=== PATIENT | female | born 1955 ===

== ENCOUNTER 2017-09-25 08:57 | Inpatient (IN) | payer BC ==
[~2017-09-25 08:57] MED LIST: Acetaminophen 1,000 MG in Premix Bag 1 BAG IV SCH; Famotidine 20 MG/2 ML SDV IVPUSH SCH; Lidocaine 2% 5 ML SDV ONE; Midazolam 1 MG/ML 2 ML SDV ONE; Propofol 200 MG/20 ML SDV ONE; Ropivacaine 49.25 ML, Ketorolac 30 MG, EPINEPHrine 0.5 MG, cloNIDine 80 MCG in Sodium C... INJECT SCH; Scopolamine 1.5 MG Transdermal Patch TRDERM SCH; Sodium Chloride 0.9% 20 ML ONE; Tranexamic Acid 4,000 MG in Sodium Chloride 0.9% 100 ML IV SCH; ceFAZolin 1 GM Vial ONE; fentaNYL 100 MCG/2 ML SDV ONE; oxyCODONE ER 10 MG TAB.ER PO SCH
[2017-09-25] MEDS ORDERED: fentaNYL 100 MCG/2 ML SDV IVPUSH PRN (09:05)
[2017-09-25] MEDS: Lactated Ringers 1,000 ML IV SCH ×3 (09:26→23:22)
[2017-09-25] MEDS: Ketorolac 30 MG/ML SDV IVPUSH SCH ×4 (09:26→23:27)
--- NOTE | 2017-09-25 09:35 | PCM.PREANE ---
Preanesthetic Assessment - Anesthesia/Transfusion/Family Hx Anesthesia History: Prior Anesthesia Without Reaction Family History of Anesthesia Reaction: No Transfusion History: No Prior Transfusion(s) - Review of Systems General: No Symptoms Pulmonary: No Symptoms Cardiovascular: No Symptoms Gastrointestinal: No Symptoms Neurological: No Symptoms Other: Reports: None - Physical Assessment NPO Status Date: 09/24/17 Height: 1.68 m Weight: 118.841 kg ASA Class: 3 Mental Status: Alert & Oriented x3 Airway Class: Mallampati = 2 Dentition: Reports: Normal Dentition ROM/Head Extension: Full Lungs: Clear to Auscultation, Normal Respiratory Effort Cardiovascular: Regular Rate, Regular Rhythm - Allergies Allergies/Adverse Reactions: Allergies Allergy/AdvReac Type Severity Reaction Status Date / Time zolpidem tartrate Allergy Arrhythmias Verified 09/20/17 10:04 [From Ambien] - Acknowledgements Anesthesia Type Planned: Spinal Pt an Appropriate Candidate for the Planned Anesthesia: Yes Alternatives and Risks of Anesthesia Discussed w Pt/Guardian: Yes Pt/Guardian Understands and Agrees with Anesthesia Plan: Yes Additional Comments: PMH: MO with BMI of 42, thyroid replacement, GERD- on meds, Allergy to ambien is tachycardia. 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: , Other (See Below) Other OB/BYN History: Ovarian Cysts Musculoskeletal History: Reports: Arthritis, Fracture Other Musculoskeletal History: chronic rt knee and elbow pain Neurological History: Reports: None Psychiatric History: Reports: ADD, Anxiety Endocrine/Metabolic History: Reports: Hypothyroidism Hematologic History: Reports: None Immunologic History: Reports: None Oncologic (Cancer) History: Reports: None Dermatologic History: Reports: None - Infectious Disease History Infectious Disease History: Reports: Chicken Pox, Measles, Mumps - Past Surgical History Other Musculoskeletal Surgeries/Procedures:: Trigger finger surgery to right hand - SUBSTANCE USE Smoking Status *Q: Former Smoker Tobacco Use Within Last Twelve Months: No Recreational Drug Use History: No - HOME MEDS Home Medications: Home Meds Diclofenac Sodium [Voltaren] 75 mg PO BID 02/09/15 [History] Levothyroxine Sodium [Unithroid] 88 mcg PO DAILY 02/09/15 [History] Pantoprazole Sodium 40 mg PO DAILY 02/09/15 [History] Aspirin [Rita Chewable Aspirin] 81 mg CHEW DAILY 09/20/17 [History] Venlafaxine HCl [Venlafaxine HCl ER] 75 mg PO DAILY 09/20/17 [History] traMADol HCl [Tramadol HCl] 50 mg PO ASDIRECTED PRN 09/20/17 [History] - CURRENT (IN HOUSE) MEDS Current Meds: Current Medications Famotidine (Pepcid) 40 mg IVPUSH ONARRIVE [facility] Last Admin: 09/25/17 09:26 Dose: 40 mg Fentanyl (Sublimaze) 50 mcg IVPUSH Q5M PRN PRN Reason: Pain (severe 7-10) Stop: 09/26/17 09:05 Acetaminophen 1,000 mg/ Premix 100 mls @ 400 mls/hr IV ONARRIVE [facility] Last Admin: 09/25/17 09:25 Dose: 400 mls/hr Cefazolin Sodium/Dextrose 2 gm (/ Premix) 50 mls @ 100 mls/hr IV ONCALL [facility] Ropivacaine 49.25 ml/Ketorolac Tromethamine 30 mg/Epinephrine HCl 0.5 mg/ Clonidine HCl 80 mcg/ Sodium Chloride 100 mls @ 50 mls/min INJECT ASDIRECTED [facility] Lactated Ringer's (Ringers, Lactated) 1,000 mls @ 100 mls/hr IV ASDIRECTED [facility] Last Admin: 09/25/17 09:26 Dose: 100 mls/hr Tranexamic Acid 4,000 mg/ (Sodium Chloride) 140 mls @ 600 mls/hr IV ASDIRECTED [facility] Ketorolac Tromethamine (Toradol) 30 mg IVPUSH ONARRIVE [facility] Last Admin: 09/25/17 09:26 Dose: 30 mg Oxycodone HCl (Oxycontin) 10 mg PO ONARRIVE [facility] Last Admin: 09/25/17 09:25 Dose: 10 mg Scopolamine (Transderm-Scop) 1.5 mg TRDERM ONARRIVE [facility] Last Admin: 09/25/17 09:27 Dose: 1.5 mg Discontinued Medications Cefazolin Sodium (Ancef) Confirm Administered Dose 2 gm .ROUTE .STK-MED ONE Stop: 09/25/17 07:12 Fentanyl (Sublimaze) Confirm Administered Dose 100 mcg .ROUTE .STK-MED ONE Stop: 09/25/17 07:09 Sodium Chloride (Normal Saline) Confirm Administered Dose 20 mls @ as directed .ROUTE .STK-MED ONE Stop: 09/25/17 07:12 Lidocaine (Xylocaine-Mpf 2%) Confirm Administered Dose 5 ml .ROUTE .STK-MED ONE Stop: 09/25/17 07:08 Midazolam HCl (Versed 1 Mg/Ml) Confirm Administered Dose 2 mg .ROUTE .STK-MED ONE Stop: 09/25/17 07:09 Propofol (Diprivan 20 Ml) Confirm Administered Dose 400 mg .ROUTE .STK-MED ONE Stop: 09/25/17 07:09 Tranexamic Acid (Cyklokapron) Confirm Administered Dose 4,000 mg .ROUTE .STK- MED ONE Stop: 09/25/17 07:27
--- NOTE | 2017-09-25 10:38 | PCM.OPNOTE ---
- General Post-Op/Procedure Note Date of Surgery/Procedure: 09/25/17 Operative Procedure(s): L TKA Post-Op Diagnosis: L knee DJD Anesthesia Technique: Moderate Sedation, Spinal Primary Surgeon: Princess Prather Professor Of Practice: Nika Garsia Professor Of Practice: Cedric Orta in mLs: 100 Condition: Good Free Text/Narrative:: tt=21 min #[id number]
[2017-09-25] MEDS ORDERED: Glycopyrrolate 0.2 MG/ML SDV ONE (10:56)
[2017-09-25] MEDS ORDERED: Propofol 200 MG/20 ML SDV ONE ×4 (10:59→11:52)
[2017-09-25] MEDS ORDERED: Aluminum Hydroxide/Magnesium Hydroxide/Simethicone Susp 30 ML Cup PO PRN (12:24)
[2017-09-25] MEDS ORDERED: Bisacodyl 10 MG Supp RECTAL PRN (12:24)
[2017-09-25] MEDS ORDERED: Ondansetron 4 MG/2 ML SDV IV PRN (12:24)
[2017-09-25] MEDS ORDERED: diphenhydrAMINE 25 MG Cap PO PRN (12:24)
--- NOTE | 2017-09-25 12:47 | CR ---
Left knee Clinical history: Postoperative Comparison: No similar Findings: There is a total knee prosthesis articulating normally with skin clips present indicating r ecent surgery. Impression: Anatomically correct left total knee
[2017-09-25] MEDS: Morphine PF 30 MG/30 ML PCA Vial IV SCH ×2 (12:52→19:25)
--- NOTE | 2017-09-25 13:21 | PCM.POSTAN ---
POST ANESTHESIA ASSESSMENT - MENTAL STATUS Mental Status: Alert, Oriented - RESPIRATORY Respiratory Status: Respiratory Rate WNL, Airway Patent, O2 Saturation Stable - CARDIOVASCULAR CV Status: Pulse Rate WNL, Blood Pressure Stable - GASTROINTESTINAL GI Status: No Symptoms - POST OP HYDRATION Hydration Status: Adequate & Stable
--- NOTE | 2017-09-25 17:48 | OR ---
SURGEON: Princess Prather MD DATE OF PROCEDURE: 09/25/2017 PREOPERATIVE DIAGNOSIS: Degenerative joint disease, left knee, tricompartmental. POSTOPERATIVE DIAGNOSIS: Degenerative joint disease, left knee, tricompartmental. PROCEDURE: Left total knee arthroplasty using patient-specific instrumentation. WOOD GRINDER OPERATOR: Nika Garsia PA-C and Cedric Orta PA-C. ANESTHESIA: Spinal with sedation. ESTIMATED BLOOD LOSS: 100 mL. TOURNIQUET TIME: 21 minute. COMPLICATIONS: None. DVT PROPHYLAXIS: PAS boot and LESTER hose to the nonoperative leg. IMPLANTS USED: Neil Persona femoral component size 5, standard (LPS), tibial component size D, 11 mm all-polyethylene articular surface, and 29 mm all-polyethylene patella. FINDINGS: Intraoperative findings showed tricompartmental degenerative changes with grade 4 chondromalacia. No significant synovitis was noted. BRIEF HISTORY: Mahsa is a 61-year-old female, who has had complaint of progressive left knee pain. She had failed conservative treatment. Due to her lack of response to conservative treatment, I did recommend surgical intervention. The risks and goals of procedure were discussed with the patient and were documented preoperatively. She agreed to proceed. DESCRIPTION OF PROCEDURE: The patient was properly identified and brought to the operating room. The patient was then transferred from the operating room cart and placed on the operating table in a supine position. Anesthesia was administered by the anesthesia staff. After adequate anesthesia was obtained, a well-padded tourniquet was applied to the surgical lower extremity. Gonsalez catheter was placed. The lower extremity was then prepped in standard fashion using ChloraPrep solution. It was then sterilely draped. A time-out was performed to ensure correct site and procedure. Preoperative antibiotics were given along with one gram of tranexamic acid IV. The surgical site had been marked preoperatively. An incision was made over the anterior aspect of the knee. The subcutaneous tissues were dissected down to the level of the fascia. A medial parapatellar approach to the knee was made. A portion of the infrapatellar fat pad was then excised. The distal femur was then exposed. The femoral patient-specific cutting guide was then placed. Pins were also placed. The distal femoral cutting block was placed and the distal femoral cut was made. Instrumentation was then removed. Both Whitesides' line and the epicondylar axis were then marked with electrocautery. The 4-in-1 cutting block was placed. This was placed in a slightly externally rotated position, which corresponded well with the previously drawn lines. The cutting guide was then pinned into position. An Cole wing guide was used to check the depth of resection of our anterior condylar cut and it was felt that no notching would occur. The anterior condylar cut was then made followed by the posterior condylar cut. Both the posterior chamfer and anterior chamfer cuts were then made. The cutting block was then removed along with the excess bony remnants. We then turned our attention to the tibia. The anterior cruciate ligament and posterior cruciate ligament were released and a posterior cruciate ligament retractor was placed to allow the tibia to be pulled anteriorly. The tibial patient-specific guide was then placed on the proximal tibia. This fit anatomically. The pins were then placed. The proximal tibia cutting guide was then placed and screwed into position. The proximal tibial resection was then made with care being taken to protect the patellar tendon. The bony resection was then removed. The remainder of the medial and lateral meniscus were then excised. Care was taken to protect the popliteus tendon. The tibia was then sized to the appropriate size. The distal femur was then elevated. The posterior capsule was stripped off of the distal femur both medially and laterally. The posterior capsule along with the medial and lateral gutters were then injected with a standard mixture consisting of clonidine, epinephrine, Toradol, and Ropivacaine, unless any allergies were found preoperatively. The femoral component was then placed onto the distal femur in a slightly lateral position. This fit the femur well. A box cut was then made without difficulty. This was then removed. The tibial trial along with the polyethylene liner was then placed. The knee came easily into full extension and was stable to varus and valgus stressing both in full extension and flexion. Any additional releases were performed at this time. We then returned our attention to the patella. The patella was everted and towel clamps were used to hold the patella in position. It was resected to a 15 millimeter thickness. It was then sized to the appropriate size. It was prepared in the usual fashion after placing the predetermined size clamps. This was placed in a slightly superior and medial position. The clamp was then removed. The patellar trial button was placed. The knee was taken through a range of motion using the no-touch technique. The patella tracked centrally. A drop sandrine was then placed to check alignment. All instruments were then removed from the knee. The tibial sizer was then placed on the tibia. The tibia was prepared in the usual fashion using the reamer and broach. An Esmarch was used to exsanguinate the right lower extremity and the tourniquet was inflated. This was then removed. All bony surfaces were copiously irrigated with Pulsavac solution. They were then suctioned dry. Cement was prepared on the back table in the usual manner. Once it was prepared, the bone ends were again suctioned dry. The tibia was cemented into place first. This was malleted into position. Excess cement was then cleared. The femur was then placed in a similar manner. We placed the polyethylene trial into place and the knee was brought into full extension. An axial load was placed while keeping the knee in full extension. The patella button was also cemented into position and the clamp was used to hold this in place as the cement was allowed to cure. The wound was again copiously irrigated with saline solution using a Pulsavac pediatric cns. Following this 1 g of tranexamic acid was applied to the wound topically. After we had adequate curing of the cement, the knee was again taken through a range of motion. The size of the polyethylene was then determined. The polyethylene trial was then removed. The tibial tray was suctioned to make sure there was no remaining soft tissue or cement. Excess cement was cleared from around the edges of the prosthesis as well. The tourniquet was then deflated. We were able to observe for any excess bleeding and none was noted. Electrocautery was used to maintain hemostasis. An additional gram of tranexamic acid was given IV. The retractors were again placed and the predetermined polyethylene was then placed. This was locked into position without difficulty. The knee was again taken through a range of motion with no change from the prior exam. The fascial layer was closed with Number One Vicryl. The subcutaneous tissues were closed with 2-0 Vicryl. The skin was closed with rohit. Xeroform gauze was placed over the wound and a bulky dressing was applied. The patient was then awakened from anesthesia and transferred back to the operating room cart. They were brought to the recovery room in stable condition. All needle and sponge counts were correct. JAI / CHRISTOPHER /[id number] MTDD
[2017-09-25] MEDS: ceFAZolin 2 GM in Premix Bag 1 BAG IV SCH ×4 (18:13)
[2017-09-25] MEDS: oxyCODONE ER 10 MG TAB.ER PO SCH (20:17)
[2017-09-25] MEDS: Docusate Sodium 100 MG Cap PO SCH (20:17)
[2017-09-25] MEDS: Acetaminophen/HYDROcodone 325-10 MG Tab PO PRN (22:13)
[2017-09-26] MEDS: Morphine PF 30 MG/30 ML PCA Vial IV SCH (00:25)
[2017-09-26] MEDS: Acetaminophen/HYDROcodone 325-10 MG Tab PO PRN ×5 (03:12→19:48)
[2017-09-26] MEDS: ceFAZolin 2 GM in Premix Bag 1 BAG IV SCH ×2 (03:14→03:15)
[2017-09-26] MEDS ORDERED: Sodium Chloride 0.9% 10 ML Syringe FLUSH PRN (08:24)
[2017-09-26] MEDS ORDERED: Sodium Chloride 0.9% 2.5 ML Syringe FLUSH PRN (08:24)
[2017-09-26] MEDS ORDERED: Morphine 4 MG/ML Syringe IVPUSH PRN (08:24)
[2017-09-26] MEDS: Aspirin 325 MG Tab PO SCH ×2 (08:53→21:33)
[2017-09-26] MEDS: Venlafaxine 75 MG Cap.ER PO SCH (08:53)
[2017-09-26] MEDS: Pantoprazole 40 MG Tab.CR PO SCH (08:53)
[2017-09-26] MEDS: Docusate Sodium 100 MG Cap PO SCH ×2 (08:54→21:33)
[2017-09-26] MEDS: oxyCODONE ER 10 MG TAB.ER PO SCH ×2 (08:54→21:33)
[2017-09-26] MEDS: Levothyroxine 88 MCG Tab PO SCH (08:56)
[2017-09-26] MEDS: Celecoxib 100 MG Cap PO SCH ×2 (08:56→21:32)
--- NOTE | 2017-09-26 09:47 | PCM48HPAN ---
Post Anesthesia Note - EVALUATION WITHIN 48HRS OF ANESTHETIC Vital Signs in Normal Range: Yes Patient Participated in Evaluation: Yes Respiratory Function Stable: Yes Airway Patent: Yes Cardiovascular Function Stable: Yes Hydration Status Stable: Yes Pain Control Satisfactory: Yes Nausea and Vomiting Control Satisfactory: Yes Mental Status Recovered: Yes
--- NOTE | 2017-09-26 11:07 | PCM.SURGPN ---
Addendum entered and electronically signed by Nika Garsia PA 09/26/17 11: 13: note should include exam of L knee reveals dressing in place, at/ehl/gastroc 5/5, dp 2+, sensation intact distally. Original Note: <Nika Garsia - Last Filed: 09/26/17 11:02> - General Info Date of Service: 09/26/17 Date of Surgery/Procedure: 09/25/17 POD#: 1 Functional Status: Reports: Tolerating Diet, Ambulating - Review of Systems Systems Review Comment:: pt resting comfortably in bed had difficult time controlling pain last night, but under better control this morning has been to bedside, had difficulty ambulating yesterday no specific concerns today is hoping for d/ch to home today - Patient Data Vitals - Most Recent: Last Vital Signs Temp 98.1 F 09/26/17 08:00 Pulse 75 09/26/17 08:00 Resp 14 09/26/17 08:00 BP 123/60 09/26/17 08:00 Pulse Ox 96 09/26/17 08:00 Weight - Most Recent: 118.841 kg I&O - Last 24 Hours: Intake & Output 09/25/17 09/26/17 09/26/17 22:59 06:59 14:59 Intake Total 50 2438 Output Total 650 Balance 50 1788 Lab Results Last 24 Hrs: Laboratory Results - last 24 hr 09/26/17 Range/Units 04:51 Hgb 10.8 L (12.0-16.0) g/dL Hct 34.3 L (36.0-46.0) % Med Orders - Current: Current Medications Hydrocodone Bitart/Acetaminophen ([place] 325-10 Mg) 1 - 2 tab PO Q4H PRN PRN Reason: Pain Last Admin: 09/26/17 07:34 Dose: 2 tab Al Hydroxide/Mg Hydroxide (Mag-Al Plus) 30 ml PO Q4H PRN PRN Reason: indigestion Aspirin (Aspirin) 325 mg PO BID [facility] Last Admin: 09/26/17 08:53 Dose: 325 mg Bisacodyl (Dulcolax) 10 mg RECTAL DAILY PRN PRN Reason: Constipation Celecoxib (Celebrex) 200 mg PO BID [facility] Last Admin: 09/26/17 08:56 Dose: 200 mg Diphenhydramine HCl (Benadryl) 25 - 50 mg PO Q6H PRN PRN Reason: Itching Docusate Sodium (Colace) 100 mg PO BID [facility] Last Admin: 09/26/17 08:54 Dose: 100 mg Famotidine (Pepcid) 40 mg IVPUSH ONARRIVE [facility] Last Admin: 09/25/17 09:26 Dose: 40 mg Acetaminophen 1,000 mg/ Premix 100 mls @ 400 mls/hr IV ONARRIVE [facility] Last Admin: 09/25/17 09:25 Dose: 400 mls/hr Cefazolin Sodium/Dextrose 2 gm (/ Premix) 50 mls @ 100 mls/hr IV ONCALL [facility] Ropivacaine 49.25 ml/Ketorolac Tromethamine 30 mg/Epinephrine HCl 0.5 mg/ Clonidine HCl 80 mcg/ Sodium Chloride 100 mls @ 50 mls/min INJECT ASDIRECTED [facility] Tranexamic Acid 4,000 mg/ (Sodium Chloride) 140 mls @ 600 mls/hr IV ASDIRECTED [facility] Ketorolac Tromethamine (Toradol) 30 mg IVPUSH ONARRIVE [facility] Last Admin: 09/25/17 09:26 Dose: 30 mg Levothyroxine Sodium (Synthroid) 88 mcg PO ACBREAKFAST [facility] Last Admin: 09/26/17 08:56 Dose: 88 mcg Morphine Sulfate (Morphine) 1 - 3 mg IVPUSH Q3H PRN PRN Reason: Pain Ondansetron HCl (Zofran) 4 mg IV Q6HR PRN PRN Reason: NAUSEA/VOMITING Oxycodone HCl (Oxycontin) 10 mg PO ONARRIVE [facility] Last Admin: 09/25/17 09:25 Dose: 10 mg Oxycodone HCl (Oxycontin) 10 mg PO Q12HR [facility] Last Admin: 09/26/17 08:54 Dose: 10 mg Pantoprazole Sodium (Protonix) 40 mg PO DAILY [facility] Last Admin: 09/26/17 08:53 Dose: 40 mg Scopolamine (Transderm-Scop) 1.5 mg TRDERM ONARRIVE [facility] Last Admin: 09/25/17 09:27 Dose: 1.5 mg Sodium Chloride (Saline Flush) 10 ml FLUSH ASDIRECTED PRN PRN Reason: Keep Vein Open Sodium Chloride (Saline Flush) 2.5 ml FLUSH ASDIRECTED PRN PRN Reason: Keep Vein Open Venlafaxine HCl (Effexor Xr) 75 mg PO DAILY [facility] Last Admin: 09/26/17 08:53 Dose: 75 mg Discontinued Medications Cefazolin Sodium (Ancef) Confirm Administered Dose 2 gm .ROUTE .STK-MED ONE Stop: 09/25/17 07:12 Fentanyl (Sublimaze) Confirm Administered Dose 100 mcg .ROUTE .STK-MED ONE Stop: 09/25/17 07:09 Fentanyl (Sublimaze) 50 mcg IVPUSH Q5M PRN PRN Reason: Pain (severe 7-10) Stop: 09/26/17 09:05 Glycopyrrolate (Robinul) Confirm Administered Dose 0.2 mg .ROUTE .[facility] Stop: 09/25/17 10:57 Lactated Ringer's (Ringers, Lactated) 1,000 mls @ 100 mls/hr IV ASDIRECTED [facility] Last Admin: 09/25/17 23:22 Dose: 100 mls/hr Sodium Chloride (Normal Saline) Confirm Administered Dose 20 mls @ as directed .ROUTE .[facility] ONE Stop: 09/25/17 07:12 Cefazolin Sodium/Dextrose 2 gm (/ Premix) 50 mls @ 100 mls/hr IV Q8H [facility] Stop: 09/26/17 03:29 Last Admin: 09/26/17 03:15 Dose: 100 mls/hr Ketorolac Tromethamine (Toradol) 30 mg IVPUSH Q6H [facility] Stop: 09/26/17 04:00 Last Admin: 09/25/17 23:27 Dose: 30 mg Lidocaine (Xylocaine-Mpf 2%) Confirm Administered Dose 5 ml .ROUTE .STK-MED ONE Stop: 09/25/17 07:08 Midazolam HCl (Versed 1 Mg/Ml) Confirm Administered Dose 2 mg .ROUTE .STK-MED ONE Stop: 09/25/17 07:09 Morphine Sulfate (Morphine Manager Fleet 30 Mg In 30 Ml) 30 mg IV ASDIRECTED [facility] PRN Reason: Protocol Last Admin: 09/26/17 00:25 Dose: 30 mg Propofol (Diprivan 20 Ml) Confirm Administered Dose 400 mg .ROUTE .STK-MED ONE Stop: 09/25/17 07:09 Propofol (Diprivan 20 Ml) Confirm Administered Dose 200 mg .ROUTE .STK-MED ONE Stop: 09/25/17 11:00 Propofol (Diprivan 20 Ml) Confirm Administered Dose 200 mg .ROUTE .STK-MED ONE Stop: 09/25/17 11:02 Propofol (Diprivan 20 Ml) Confirm Administered Dose 200 mg .ROUTE .STK-MED ONE Stop: 09/25/17 11:10 Propofol (Diprivan 20 Ml) Confirm Administered Dose 200 mg .ROUTE .STK-MED ONE Stop: 09/25/17 11:53 Tranexamic Acid (Cyklokapron) Confirm Administered Dose 4,000 mg .ROUTE .STK- MED ONE Stop: 09/25/17 07:27 - Exam Wound/Incisions: Dressing Dry and Intact. No: Drainage, Erythema General: Alert, Oriented Physical Findings Comment:: vss, afeb hgb 10.8 UO 785mL - Problem List Review Problem List Initiated/Reviewed/Updated: Yes - My Orders Last 24 Hours: Active Orders 24 hr Category Date Time Status Activity as Tolerated [RC] .Routine Care 09/25/17 12:24 Active Dressing Change [Wound Care] [RC] ASDIRECTED Care 09/25/17 12:24 Active Intake and Output [RC] Q12H Care 09/25/17 12:24 Active Neurovascular Check [RC] Q2HR Care 09/25/17 12:24 Active Notify Provider Vital Signs [RC] ASDIRECTED Care 09/25/17 12:24 Active RT Incentive Spirometry [RC] ASDIRECTED Care 09/25/17 12:24 Active Urinary Catheter Removal [RC] Per Unit Routine Care 09/26/17 08:24 Active Vital Signs [RC] Q4H Care 09/25/17 12:24 Active PT Evaluation and Treatment [CONS] Routine Cons 09/25/17 12:24 Active HEMOGLOBIN/HEMATOCRIT,HH [HEME] DAILY Lab 09/27/17 06:00 Ordered HEMOGLOBIN/HEMATOCRIT,HH [HEME] DAILY Lab 09/28/17 06:00 Ordered Acetaminophen/HYDROcodone [[place] 325-10 MG] Med 09/25/17 12:24 Active 1 - 2 tab PO Q4H PRN Alum Hydrox/Mag Hydrox/Simeth [Mag-Al Plus] Med 09/25/17 12:24 Active 30 ml PO Q4H PRN Aspirin Med 09/26/17 09:00 Active 325 mg PO BID Bisacodyl [Dulcolax] Med 09/25/17 12:24 Active 10 mg RECTAL DAILY PRN Celecoxib [CeleBREX] Med 09/26/17 09:00 Active 200 mg PO BID Docusate Sodium [Colace] Med 09/25/17 21:00 Active 100 mg PO BID Levothyroxine [Synthroid] Med 09/26/17 09:00 Active 88 mcg PO ACBREAKFAST Morphine Med 09/26/17 08:24 Active 1 - 3 mg IVPUSH Q3H PRN Ondansetron [Zofran] Med 09/25/17 12:24 Active 4 mg IV Q6HR PRN Pantoprazole [ProTONIX] Med 09/26/17 09:00 Active 40 mg PO DAILY Sodium Chloride 0.9% [Saline Flush] Med 09/26/17 08:24 Active 10 ml FLUSH ASDIRECTED PRN Sodium Chloride 0.9% [Saline Flush] Med 09/26/17 08:24 Active 2.5 ml FLUSH ASDIRECTED PRN Venlafaxine [Effexor XR] Med 09/26/17 09:00 Active 75 mg PO DAILY diphenhydrAMINE [Benadryl] Med 09/25/17 12:24 Active 25 - 50 mg PO Q6H PRN oxyCODONE ER [OxyCONTIN] Med 09/25/17 21:00 Active 10 mg PO Q12HR Convert IV to Saline Lock [OM.PC] Routine Oth 09/26/17 08:24 Ordered Ice Therapy [OM.PC] Routine Oth 09/25/17 12:24 Ordered Medication Orders Hydrocodone Bitart/Acetaminophen ([place] 325-10 Mg) 1 - 2 tab PO Q4H PRN PRN Reason: Pain Last Admin: 09/26/17 07:34 Dose: 2 tab Admin: 09/26/17 03:12 Dose: 1 tab Admin: 09/25/17 22:13 Dose: 1 tab Al Hydroxide/Mg Hydroxide (Mag-Al Plus) 30 ml PO Q4H PRN PRN Reason: indigestion Aspirin (Aspirin) 325 mg PO BID [facility] Last Admin: 09/26/17 08:53 Dose: 325 mg Bisacodyl (Dulcolax) 10 mg RECTAL DAILY PRN PRN Reason: Constipation Celecoxib (Celebrex) 200 mg PO BID [facility] Last Admin: 09/26/17 08:56 Dose: 200 mg Diphenhydramine HCl (Benadryl) 25 - 50 mg PO Q6H PRN PRN Reason: Itching Docusate Sodium (Colace) 100 mg PO BID [facility] Last Admin: 09/26/17 08:54 Dose: 100 mg Admin: 09/25/17 20:17 Dose: 100 mg Famotidine (Pepcid) 40 mg IVPUSH ONARRIVE [facility] Last Admin: 09/25/17 09:26 Dose: 40 mg Acetaminophen 1,000 mg/ Premix 100 mls @ 400 mls/hr IV ONARRIVE [facility] Last Admin: 09/25/17 09:25 Dose: 400 mls/hr Cefazolin Sodium/Dextrose 2 gm (/ Premix) 50 mls @ 100 mls/hr IV ONCALL [facility] Ropivacaine 49.25 ml/Ketorolac Tromethamine 30 mg/Epinephrine HCl 0.5 mg/ Clonidine HCl 80 mcg/ Sodium Chloride 100 mls @ 50 mls/min INJECT ASDIRECTED [facility] Tranexamic Acid 4,000 mg/ (Sodium Chloride) 140 mls @ 600 mls/hr IV ASDIRECTED [facility] Ketorolac Tromethamine (Toradol) 30 mg IVPUSH ONARRIVE [facility] Last Admin: 09/25/17 09:26 Dose: 30 mg Levothyroxine Sodium (Synthroid) 88 mcg PO ACBREAKFAST [facility] Last Admin: 09/26/17 08:56 Dose: 88 mcg Morphine Sulfate (Morphine) 1 - 3 mg IVPUSH Q3H PRN PRN Reason: Pain Ondansetron HCl (Zofran) 4 mg IV Q6HR PRN PRN Reason: NAUSEA/VOMITING Oxycodone HCl (Oxycontin) 10 mg PO ONARRIVE [facility] Last Admin: 09/25/17 09:25 Dose: 10 mg Oxycodone HCl (Oxycontin) 10 mg PO Q12HR [facility] Last Admin: 09/26/17 08:54 Dose: 10 mg Admin: 09/25/17 20:17 Dose: 10 mg Pantoprazole Sodium (Protonix) 40 mg PO DAILY [facility] Last Admin: 09/26/17 08:53 Dose: 40 mg Scopolamine (Transderm-Scop) 1.5 mg TRDERM ONARRIVE [facility] Last Admin: 09/25/17 09:27 Dose: 1.5 mg Sodium Chloride (Saline Flush) 10 ml FLUSH ASDIRECTED PRN PRN Reason: Keep Vein Open Sodium Chloride (Saline Flush) 2.5 ml FLUSH ASDIRECTED PRN PRN Reason: Keep Vein Open Venlafaxine HCl (Effexor Xr) 75 mg PO DAILY [facility] Last Admin: 09/26/17 08:53 Dose: 75 mg - Assessment Assessment (Free Text/Narrative):: POD#1 L TKA acute posthemorrhagic anemia - Plan Plan (Free Text/Narrative):: DC [employer], IV fluids, arias morphine 1-3mg IV q3h prn pain PT today ASA 325mg PO BID for DVT prophylaxis if pt does well with PT, and pain is well controlled, will allow d/ch to home this afternoon will need dressing change to aquacel prior to discharge <Princess Prather - Last Filed: 09/27/17 08:39> - Patient Data Vitals - Most Recent: Last Vital Signs Temp 98.2 F 09/27/17 04:00 Pulse 74 09/27/17 04:00 Resp 17 09/27/17 04:00 BP 136/88 09/27/17 04:00 Pulse Ox 98 09/27/17 04:00 I&O - Last 24 Hours: Intake & Output 09/26/17 09/27/17 09/27/17 22:59 06:59 14:59 Intake Total 920 600 Output Total 650 Balance 920 -50 Lab Results Last 24 Hrs: Laboratory Results - last 24 hr 09/27/17 Range/Units 05:28 Hgb 10.8 L (12.0-16.0) g/dL Hct 33.8 L (36.0-46.0) % Med Orders - Current: Current Medications Hydrocodone Bitart/Acetaminophen ([place] 325-10 Mg) 1 - 2 tab PO Q4H PRN PRN Reason: Pain Last Admin: 09/27/17 06:51 Dose: 2 tab Al Hydroxide/Mg Hydroxide (Mag-Al Plus) 30 ml PO Q4H PRN PRN Reason: indigestion Aspirin (Aspirin) 325 mg PO BID [facility] Last Admin: 09/26/17 21:33 Dose: 325 mg Bisacodyl (Dulcolax) 10 mg RECTAL DAILY PRN PRN Reason: Constipation Celecoxib (Celebrex) 200 mg PO BID [facility] Last Admin: 09/26/17 21:32 Dose: 200 mg Diphenhydramine HCl (Benadryl) 25 - 50 mg PO Q6H PRN PRN Reason: Itching Docusate Sodium (Colace) 100 mg PO BID [facility] Last Admin: 09/26/17 21:33 Dose: 100 mg Famotidine (Pepcid) 40 mg IVPUSH ONARRIVE [facility] Last Admin: 09/25/17 09:26 Dose: 40 mg Acetaminophen 1,000 mg/ Premix 100 mls @ 400 mls/hr IV ONARRIVE [facility] Last Admin: 09/25/17 09:25 Dose: 400 mls/hr Cefazolin Sodium/Dextrose 2 gm (/ Premix) 50 mls @ 100 mls/hr IV ONCALL [facility] Ropivacaine 49.25 ml/Ketorolac Tromethamine 30 mg/Epinephrine HCl 0.5 mg/ Clonidine HCl 80 mcg/ Sodium Chloride 100 mls @ 50 mls/min INJECT ASDIRECTED [facility] Tranexamic Acid 4,000 mg/ (Sodium Chloride) 140 mls @ 600 mls/hr IV ASDIRECTED [facility] Ketorolac Tromethamine (Toradol) 30 mg IVPUSH ONARRIVE [facility] Last Admin: 09/25/17 09:26 Dose: 30 mg Levothyroxine Sodium (Synthroid) 88 mcg PO ACBREAKFAST [facility] Last Admin: 09/27/17 06:55 Dose: 88 mcg Morphine Sulfate (Morphine) 1 - 3 mg IVPUSH Q3H PRN PRN Reason: Pain Last Admin: 09/26/17 13:16 Dose: 1 mg Ondansetron HCl (Zofran) 4 mg IV Q6HR PRN PRN Reason: NAUSEA/VOMITING Oxycodone HCl (Oxycontin) 10 mg PO ONARRIVE [facility] Last Admin: 09/25/17 09:25 Dose: 10 mg Oxycodone HCl (Oxycontin) 10 mg PO Q12HR [facility] Last Admin: 09/26/17 21:33 Dose: 10 mg Pantoprazole Sodium (Protonix) 40 mg PO DAILY [facility] Last Admin: 09/26/17 08:53 Dose: 40 mg Scopolamine (Transderm-Scop) 1.5 mg TRDERM ONARRIVE [facility] Last Admin: 09/25/17 09:27 Dose: 1.5 mg Sodium Chloride (Saline Flush) 10 ml FLUSH ASDIRECTED PRN PRN Reason: Keep Vein Open Sodium Chloride (Saline Flush) 2.5 ml FLUSH ASDIRECTED PRN PRN Reason: Keep Vein Open Tramadol HCl (Ultram) 50 - 100 mg PO Q6H PRN PRN Reason: Pain Venlafaxine HCl (Effexor Xr) 75 mg PO DAILY [facility] Last Admin: 09/26/17 08:53 Dose: 75 mg Discontinued Medications Cefazolin Sodium (Ancef) Confirm Administered Dose 2 gm .ROUTE .STK-MED ONE Stop: 09/25/17 07:12 Fentanyl (Sublimaze) Confirm Administered Dose 100 mcg .ROUTE .STK-MED ONE Stop: 09/25/17 07:09 Fentanyl (Sublimaze) 50 mcg IVPUSH Q5M PRN PRN Reason: Pain (severe 7-10) Stop: 09/26/17 09:05 Glycopyrrolate (Robinul) Confirm Administered Dose 0.2 mg .ROUTE .STK-MED ONE Stop: 09/25/17 10:57 Lactated Ringer's (Ringers, Lactated) 1,000 mls @ 100 mls/hr IV ASDIRECTED [facility] Last Admin: 09/25/17 23:22 Dose: 100 mls/hr Sodium Chloride (Normal Saline) Confirm Administered Dose 20 mls @ as directed .ROUTE .STK-MED ONE Stop: 09/25/17 07:12 Cefazolin Sodium/Dextrose 2 gm (/ Premix) 50 mls @ 100 mls/hr IV Q8H [facility] Stop: 09/26/17 03:29 Last Admin: 09/26/17 03:15 Dose: 100 mls/hr Ketorolac Tromethamine (Toradol) 30 mg IVPUSH Q6H [facility] Stop: 09/26/17 04:00 Last Admin: 09/25/17 23:27 Dose: 30 mg Lidocaine (Xylocaine-Mpf 2%) Confirm Administered Dose 5 ml .ROUTE .STK-MED ONE Stop: 09/25/17 07:08 Midazolam HCl (Versed 1 Mg/Ml) Confirm Administered Dose 2 mg .ROUTE .STK-MED ONE Stop: 09/25/17 07:09 Morphine Sulfate (Morphine Manager Fleet 30 Mg In 30 Ml) 30 mg IV ASDIRECTED [facility] PRN Reason: Protocol Last Admin: 09/26/17 00:25 Dose: 30 mg Propofol (Diprivan 20 Ml) Confirm Administered Dose 400 mg .ROUTE .STK-MED ONE Stop: 09/25/17 07:09 Propofol (Diprivan 20 Ml) Confirm Administered Dose 200 mg .ROUTE .STK-MED ONE Stop: 09/25/17 11:00 Propofol (Diprivan 20 Ml) Confirm Administered Dose 200 mg .ROUTE .STK-MED ONE Stop: 09/25/17 11:02 Propofol (Diprivan 20 Ml) Confirm Administered Dose 200 mg .ROUTE .STK-MED ONE Stop: 09/25/17 11:10 Propofol (Diprivan 20 Ml) Confirm Administered Dose 200 mg .ROUTE .STK-MED ONE Stop: 09/25/17 11:53 Tranexamic Acid (Cyklokapron) Confirm Administered Dose 4,000 mg .ROUTE .STK- MED ONE Stop: 09/25/17 07:27 - My Orders Last 24 Hours: Active Orders 24 hr Category Date Time Status HEMOGLOBIN/HEMATOCRIT,HH [HEME] DAILY Lab 09/28/17 06:00 Ordered Aspirin Med 09/26/17 09:00 Active 325 mg PO BID Celecoxib [CeleBREX] Med 09/26/17 09:00 Active 200 mg PO BID Levothyroxine [Synthroid] Med 09/26/17 09:00 Active 88 mcg PO ACBREAKFAST Morphine Med 09/26/17 08:24 Active 1 - 3 mg IVPUSH Q3H PRN Pantoprazole [ProTONIX] Med 09/26/17 09:00 Active 40 mg PO DAILY Sodium Chloride 0.9% [Saline Flush] Med 09/26/17 08:24 Active 10 ml FLUSH ASDIRECTED PRN Sodium Chloride 0.9% [Saline Flush] Med 09/26/17 08:24 Active 2.5 ml FLUSH ASDIRECTED PRN Venlafaxine [Effexor XR] Med 09/26/17 09:00 Active 75 mg PO DAILY traMADol [Ultram] Med 09/26/17 16:44 Active 50 - 100 mg PO Q6H PRN Convert IV to Saline Lock [OM.PC] Routine Oth 09/26/17 08:24 Ordered Medication Orders Hydrocodone Bitart/Acetaminophen ([place] 325-10 Mg) 1 - 2 tab PO Q4H PRN PRN Reason: Pain Last Admin: 09/27/17 06:51 Dose: 2 tab Admin: 09/27/17 02:07 Dose: 2 tab Admin: 09/26/17 19:48 Dose: 2 tab Admin: 09/26/17 15:35 Dose: 2 tab Admin: 09/26/17 11:35 Dose: 2 tab Admin: 09/26/17 07:34 Dose: 2 tab Admin: 09/26/17 03:12 Dose: 1 tab Admin: 09/25/17 22:13 Dose: 1 tab Al Hydroxide/Mg Hydroxide (Mag-Al Plus) 30 ml PO Q4H PRN PRN Reason: indigestion Aspirin (Aspirin) 325 mg PO BID [facility] Last Admin: 09/26/17 21:33 Dose: 325 mg Admin: 09/26/17 08:53 Dose: 325 mg Bisacodyl (Dulcolax) 10 mg RECTAL DAILY PRN PRN Reason: Constipation Celecoxib (Celebrex) 200 mg PO BID [facility] Last Admin: 09/26/17 21:32 Dose: 200 mg Admin: 09/26/17 08:56 Dose: 200 mg Diphenhydramine HCl (Benadryl) 25 - 50 mg PO Q6H PRN PRN Reason: Itching Docusate Sodium (Colace) 100 mg PO BID [facility] Last Admin: 09/26/17 21:33 Dose: 100 mg Admin: 09/26/17 08:54 Dose: 100 mg Admin: 09/25/17 20:17 Dose: 100 mg Famotidine (Pepcid) 40 mg IVPUSH ONARRIVE [facility] Last Admin: 09/25/17 09:26 Dose: 40 mg Acetaminophen 1,000 mg/ Premix 100 mls @ 400 mls/hr IV ONARRIVE [facility] Last Admin: 09/25/17 09:25 Dose: 400 mls/hr Cefazolin Sodium/Dextrose 2 gm (/ Premix) 50 mls @ 100 mls/hr IV ONCALL [facility] Ropivacaine 49.25 ml/Ketorolac Tromethamine 30 mg/Epinephrine HCl 0.5 mg/ Clonidine HCl 80 mcg/ Sodium Chloride 100 mls @ 50 mls/min INJECT ASDIRECTED [facility] Tranexamic Acid 4,000 mg/ (Sodium Chloride) 140 mls @ 600 mls/hr IV ASDIRECTED [facility] Ketorolac Tromethamine (Toradol) 30 mg IVPUSH ONARRIVE [facility] Last Admin: 09/25/17 09:26 Dose: 30 mg Levothyroxine Sodium (Synthroid) 88 mcg PO ACBREAKFAST [facility] Last Admin: 09/27/17 06:55 Dose: 88 mcg Admin: 09/26/17 08:56 Dose: 88 mcg Morphine Sulfate (Morphine) 1 - 3 mg IVPUSH Q3H PRN PRN Reason: Pain Last Admin: 09/26/17 13:16 Dose: 1 mg Ondansetron HCl (Zofran) 4 mg IV Q6HR PRN PRN Reason: NAUSEA/VOMITING Oxycodone HCl (Oxycontin) 10 mg PO ONARRIVE [facility] Last Admin: 09/25/17 09:25 Dose: 10 mg Oxycodone HCl (Oxycontin) 10 mg PO Q12HR [facility] Last Admin: 09/26/17 21:33 Dose: 10 mg Admin: 09/26/17 08:54 Dose: 10 mg Admin: 09/25/17 20:17 Dose: 10 mg Pantoprazole Sodium (Protonix) 40 mg PO DAILY [facility] Last Admin: 09/26/17 08:53 Dose: 40 mg Scopolamine (Transderm-Scop) 1.5 mg TRDERM ONARRIVE [facility] Last Admin: 09/25/17 09:27 Dose: 1.5 mg Sodium Chloride (Saline Flush) 10 ml FLUSH ASDIRECTED PRN PRN Reason: Keep Vein Open Sodium Chloride (Saline Flush) 2.5 ml FLUSH ASDIRECTED PRN PRN Reason: Keep Vein Open Tramadol HCl (Ultram) 50 - 100 mg PO Q6H PRN PRN Reason: Pain Venlafaxine HCl (Effexor Xr) 75 mg PO DAILY [facility] Last Admin: 09/26/17 08:53 Dose: 75 mg - Plan Plan (Free Text/Narrative):: Late entry Patient seen and examined at 1730. Still using Morphine for pain management. Progressing slowly with PT. Dressing dry/intact. NVI. will keep for additional pain management. Plan to discharge home tomorrow. rrk
[2017-09-26] MEDS ORDERED: traMADol 50 MG Tab PO PRN (16:44)
[2017-09-27] MEDS: Acetaminophen/HYDROcodone 325-10 MG Tab PO PRN ×3 (02:07→11:09)
[2017-09-27] MEDS: Levothyroxine 88 MCG Tab PO SCH (06:55)
[2017-09-27] MEDS: Venlafaxine 75 MG Cap.ER PO SCH (08:38)
[2017-09-27] MEDS: Aspirin 325 MG Tab PO SCH (08:38)
[2017-09-27] MEDS: Docusate Sodium 100 MG Cap PO SCH (08:38)
[2017-09-27] MEDS: Pantoprazole 40 MG Tab.CR PO SCH (08:38)
[2017-09-27] MEDS: Celecoxib 100 MG Cap PO SCH (08:38)
[2017-09-27] MEDS: oxyCODONE ER 10 MG TAB.ER PO SCH (08:39)
--- NOTE | 2017-09-27 08:40 | PCM.SURGPN ---
Addendum entered and electronically signed by Nika Garsia PA 09/27/17 10: 11: d/ summary #[id number] Original Note: <Nika Garsia - Last Filed: 09/27/17 08:33> - General Info Date of Service: 09/27/17 Date of Surgery/Procedure: 09/26/17 POD#: 2 Functional Status: Reports: Pain Controlled, Tolerating Diet, Ambulating, Urinating - Review of Systems General: Reports: No Symptoms Musculoskeletal: Reports: Leg Pain Systems Review Comment:: pt resting comfortably in bed pain better controlled this morning has been ambulating has not done stairs yet with PT would like to go home this afternoon - confident she can do stairs - Patient Data Vitals - Most Recent: Last Vital Signs Temp 98.2 F 09/27/17 04:00 Pulse 74 09/27/17 04:00 Resp 17 09/27/17 04:00 BP 136/88 09/27/17 04:00 Pulse Ox 98 09/27/17 04:00 Weight - Most Recent: 118.841 kg I&O - Last 24 Hours: Intake & Output 09/26/17 09/27/17 09/27/17 22:59 06:59 14:59 Intake Total 920 600 Output Total 650 Balance 920 -50 Lab Results Last 24 Hrs: Laboratory Results - last 24 hr 09/27/17 Range/Units 05:28 Hgb 10.8 L (12.0-16.0) g/dL Hct 33.8 L (36.0-46.0) % Med Orders - Current: Current Medications Hydrocodone Bitart/Acetaminophen (Edmonson 325-10 Mg) 1 - 2 tab PO Q4H PRN PRN Reason: Pain Last Admin: 09/27/17 06:51 Dose: 2 tab Al Hydroxide/Mg Hydroxide (Mag-Al Plus) 30 ml PO Q4H PRN PRN Reason: indigestion Aspirin (Aspirin) 325 mg PO BID [facility] Last Admin: 09/26/17 21:33 Dose: 325 mg Bisacodyl (Dulcolax) 10 mg RECTAL DAILY PRN PRN Reason: Constipation Celecoxib (Celebrex) 200 mg PO BID [facility] Last Admin: 09/26/17 21:32 Dose: 200 mg Diphenhydramine HCl (Benadryl) 25 - 50 mg PO Q6H PRN PRN Reason: Itching Docusate Sodium (Colace) 100 mg PO BID [facility] Last Admin: 09/26/17 21:33 Dose: 100 mg Famotidine (Pepcid) 40 mg IVPUSH ONARRIVE [facility] Last Admin: 09/25/17 09:26 Dose: 40 mg Acetaminophen 1,000 mg/ Premix 100 mls @ 400 mls/hr IV ONARRIVE [facility] Last Admin: 09/25/17 09:25 Dose: 400 mls/hr Cefazolin Sodium/Dextrose 2 gm (/ Premix) 50 mls @ 100 mls/hr IV ONCALL [facility] Ropivacaine 49.25 ml/Ketorolac Tromethamine 30 mg/Epinephrine HCl 0.5 mg/ Clonidine HCl 80 mcg/ Sodium Chloride 100 mls @ 50 mls/min INJECT ASDIRECTED [facility] Tranexamic Acid 4,000 mg/ (Sodium Chloride) 140 mls @ 600 mls/hr IV ASDIRECTED [facility] Ketorolac Tromethamine (Toradol) 30 mg IVPUSH ONARRIVE [facility] Last Admin: 09/25/17 09:26 Dose: 30 mg Levothyroxine Sodium (Synthroid) 88 mcg PO ACBREAKFAST [facility] Last Admin: 09/27/17 06:55 Dose: 88 mcg Morphine Sulfate (Morphine) 1 - 3 mg IVPUSH Q3H PRN PRN Reason: Pain Last Admin: 09/26/17 13:16 Dose: 1 mg Ondansetron HCl (Zofran) 4 mg IV Q6HR PRN PRN Reason: NAUSEA/VOMITING Oxycodone HCl (Oxycontin) 10 mg PO ONARRIVE [facility] Last Admin: 09/25/17 09:25 Dose: 10 mg Oxycodone HCl (Oxycontin) 10 mg PO Q12HR [facility] Last Admin: 09/26/17 21:33 Dose: 10 mg Pantoprazole Sodium (Protonix) 40 mg PO DAILY [facility] Last Admin: 09/26/17 08:53 Dose: 40 mg Scopolamine (Transderm-Scop) 1.5 mg TRDERM ONARRIVE [facility] Last Admin: 09/25/17 09:27 Dose: 1.5 mg Sodium Chloride (Saline Flush) 10 ml FLUSH ASDIRECTED PRN PRN Reason: Keep Vein Open Sodium Chloride (Saline Flush) 2.5 ml FLUSH ASDIRECTED PRN PRN Reason: Keep Vein Open Tramadol HCl (Ultram) 50 - 100 mg PO Q6H PRN PRN Reason: Pain Venlafaxine HCl (Effexor Xr) 75 mg PO DAILY [facility] Last Admin: 09/26/17 08:53 Dose: 75 mg Discontinued Medications Cefazolin Sodium (Ancef) Confirm Administered Dose 2 gm .ROUTE .STK-MED ONE Stop: 09/25/17 07:12 Fentanyl (Sublimaze) Confirm Administered Dose 100 mcg .ROUTE .STK-MED ONE Stop: 09/25/17 07:09 Fentanyl (Sublimaze) 50 mcg IVPUSH Q5M PRN PRN Reason: Pain (severe 7-10) Stop: 09/26/17 09:05 Glycopyrrolate (Robinul) Confirm Administered Dose 0.2 mg .ROUTE .STK-MED [facility] Stop: 09/25/17 10:57 Lactated Ringer's (Ringers, Lactated) 1,000 mls @ 100 mls/hr IV ASDIRECTED [facility] Last Admin: 09/25/17 23:22 Dose: 100 mls/hr Sodium Chloride (Normal Saline) Confirm Administered Dose 20 mls @ as directed .ROUTE .STK-MED ONE Stop: 09/25/17 07:12 Cefazolin Sodium/Dextrose 2 gm (/ Premix) 50 mls @ 100 mls/hr IV Q8H [facility] Stop: 09/26/17 03:29 Last Admin: 09/26/17 03:15 Dose: 100 mls/hr Ketorolac Tromethamine (Toradol) 30 mg IVPUSH Q6H [facility] Stop: 09/26/17 04:00 Last Admin: 09/25/17 23:27 Dose: 30 mg Lidocaine (Xylocaine-Mpf 2%) Confirm Administered Dose 5 ml .ROUTE .STK-MED ONE Stop: 09/25/17 07:08 Midazolam HCl (Versed 1 Mg/Ml) Confirm Administered Dose 2 mg .ROUTE .STK-MED ONE Stop: 09/25/17 07:09 Morphine Sulfate (Morphine [employer] Load [employer] 30 Mg In 30 Ml) 30 mg IV ASDIRECTED [facility] PRN Reason: Protocol Last Admin: 09/26/17 00:25 Dose: 30 mg Propofol (Diprivan 20 Ml) Confirm Administered Dose 400 mg .ROUTE .STK-MED ONE Stop: 09/25/17 07:09 Propofol (Diprivan 20 Ml) Confirm Administered Dose 200 mg .ROUTE .STK-MED ONE Stop: 09/25/17 11:00 Propofol (Diprivan 20 Ml) Confirm Administered Dose 200 mg .ROUTE .STK-MED ONE Stop: 09/25/17 11:02 Propofol (Diprivan 20 Ml) Confirm Administered Dose 200 mg .ROUTE .STK-MED ONE Stop: 09/25/17 11:10 Propofol (Diprivan 20 Ml) Confirm Administered Dose 200 mg .ROUTE .STK-MED ONE Stop: 09/25/17 11:53 Tranexamic Acid (Cyklokapron) Confirm Administered Dose 4,000 mg .ROUTE .[facility] ONE Stop: 09/25/17 07:27 - Exam Wound/Incisions: Healing Well. No: Drainage, Erythema General: Alert, Oriented Cardiovascular: Regular Rate, Regular Rhythm Extremities: Other (exam LLE - at/ehl/gastroc 5/5, dp 2+, sensation intact distally) Physical Findings Comment:: vss, afeb hgb 10.8 - Problem List Review Problem List Initiated/Reviewed/Updated: Yes - My Orders Last 24 Hours: Active Orders 24 hr Category Date Time Status HEMOGLOBIN/HEMATOCRIT,HH [HEME] DAILY Lab 09/28/17 06:00 Ordered Aspirin Med 09/26/17 09:00 Active 325 mg PO BID Celecoxib [CeleBREX] Med 09/26/17 09:00 Active 200 mg PO BID Levothyroxine [Synthroid] Med 09/26/17 09:00 Active 88 mcg PO ACBREAKFAST Morphine Med 09/26/17 08:24 Active 1 - 3 mg IVPUSH Q3H PRN Pantoprazole [ProTONIX] Med 09/26/17 09:00 Active 40 mg PO DAILY Sodium Chloride 0.9% [Saline Flush] Med 09/26/17 08:24 Active 10 ml FLUSH ASDIRECTED PRN Sodium Chloride 0.9% [Saline Flush] Med 09/26/17 08:24 Active 2.5 ml FLUSH ASDIRECTED PRN Venlafaxine [Effexor XR] Med 09/26/17 09:00 Active 75 mg PO DAILY traMADol [Ultram] Med 09/26/17 16:44 Active 50 - 100 mg PO Q6H PRN Convert IV to Saline Lock [OM.PC] Routine Oth 09/26/17 08:24 Ordered Medication Orders Hydrocodone Bitart/Acetaminophen ([place] 325-10 Mg) 1 - 2 tab PO Q4H PRN PRN Reason: Pain Last Admin: 09/27/17 06:51 Dose: 2 tab Admin: 09/27/17 02:07 Dose: 2 tab Admin: 09/26/17 19:48 Dose: 2 tab Admin: 09/26/17 15:35 Dose: 2 tab Admin: 09/26/17 11:35 Dose: 2 tab Admin: 09/26/17 07:34 Dose: 2 tab Admin: 09/26/17 03:12 Dose: 1 tab Admin: 09/25/17 22:13 Dose: 1 tab Al Hydroxide/Mg Hydroxide (Mag-Al Plus) 30 ml PO Q4H PRN PRN Reason: indigestion Aspirin (Aspirin) 325 mg PO BID [facility] Last Admin: 09/26/17 21:33 Dose: 325 mg Admin: 09/26/17 08:53 Dose: 325 mg Bisacodyl (Dulcolax) 10 mg RECTAL DAILY PRN PRN Reason: Constipation Celecoxib (Celebrex) 200 mg PO BID [facility] Last Admin: 09/26/17 21:32 Dose: 200 mg Admin: 09/26/17 08:56 Dose: 200 mg Diphenhydramine HCl (Benadryl) 25 - 50 mg PO Q6H PRN PRN Reason: Itching Docusate Sodium (Colace) 100 mg PO BID [facility] Last Admin: 09/26/17 21:33 Dose: 100 mg Admin: 09/26/17 08:54 Dose: 100 mg Admin: 09/25/17 20:17 Dose: 100 mg Famotidine (Pepcid) 40 mg IVPUSH ONARRIVE [facility] Last Admin: 09/25/17 09:26 Dose: 40 mg Acetaminophen 1,000 mg/ Premix 100 mls @ 400 mls/hr IV ONARRIVE [facility] Last Admin: 09/25/17 09:25 Dose: 400 mls/hr Cefazolin Sodium/Dextrose 2 gm (/ Premix) 50 mls @ 100 mls/hr IV ONCALL [facility] Ropivacaine 49.25 ml/Ketorolac Tromethamine 30 mg/Epinephrine HCl 0.5 mg/ Clonidine HCl 80 mcg/ Sodium Chloride 100 mls @ 50 mls/min INJECT ASDIRECTED [facility] Tranexamic Acid 4,000 mg/ (Sodium Chloride) 140 mls @ 600 mls/hr IV ASDIRECTED [facility] Ketorolac Tromethamine (Toradol) 30 mg IVPUSH ONARRIVE [facility] Last Admin: 09/25/17 09:26 Dose: 30 mg Levothyroxine Sodium (Synthroid) 88 mcg PO ACBREAKFAST [facility] Last Admin: 09/27/17 06:55 Dose: 88 mcg Admin: 09/26/17 08:56 Dose: 88 mcg Morphine Sulfate (Morphine) 1 - 3 mg IVPUSH Q3H PRN PRN Reason: Pain Last Admin: 09/26/17 13:16 Dose: 1 mg Ondansetron HCl (Zofran) 4 mg IV Q6HR PRN PRN Reason: NAUSEA/VOMITING Oxycodone HCl (Oxycontin) 10 mg PO ONARRIVE [facility] Last Admin: 09/25/17 09:25 Dose: 10 mg Oxycodone HCl (Oxycontin) 10 mg PO Q12HR [facility] Last Admin: 09/26/17 21:33 Dose: 10 mg Admin: 09/26/17 08:54 Dose: 10 mg Admin: 09/25/17 20:17 Dose: 10 mg Pantoprazole Sodium (Protonix) 40 mg PO DAILY [facility] Last Admin: 09/26/17 08:53 Dose: 40 mg Scopolamine (Transderm-Scop) 1.5 mg TRDERM ONARRIVE [facility] Last Admin: 09/25/17 09:27 Dose: 1.5 mg Sodium Chloride (Saline Flush) 10 ml FLUSH ASDIRECTED PRN PRN Reason: Keep Vein Open Sodium Chloride (Saline Flush) 2.5 ml FLUSH ASDIRECTED PRN PRN Reason: Keep Vein Open Tramadol HCl (Ultram) 50 - 100 mg PO Q6H PRN PRN Reason: Pain Venlafaxine HCl (Effexor Xr) 75 mg PO DAILY [facility] Last Admin: 09/26/17 08:53 Dose: 75 mg - Assessment Assessment (Free Text/Narrative):: POD#2 L TKA acute posthemorrhagic anemia - Plan Plan (Free Text/Narrative):: continue pain management continue with PT dressing changed will d/ch to home after PM PT d/ch meds written <Princess Prather R - Last Filed: 09/27/17 11:10> - Patient Data Vitals - Most Recent: Last Vital Signs Temp 97.5 F 09/27/17 08:00 Pulse 74 09/27/17 08:00 Resp 16 09/27/17 08:00 BP 121/63 09/27/17 08:00 Pulse Ox 98 09/27/17 08:00 I&O - Last 24 Hours: Intake & Output 09/26/17 09/27/17 09/27/17 22:59 06:59 14:59 Intake Total 920 600 Output Total 650 Balance 920 -50 Lab Results Last 24 Hrs: Laboratory Results - last 24 hr 09/27/17 Range/Units 05:28 Hgb 10.8 L (12.0-16.0) g/dL Hct 33.8 L (36.0-46.0) % Med Orders - Current: Current Medications Hydrocodone Bitart/Acetaminophen ([place] 325-10 Mg) 1 - 2 tab PO Q4H PRN PRN Reason: Pain Last Admin: 09/27/17 06:51 Dose: 2 tab Al Hydroxide/Mg Hydroxide (Mag-Al Plus) 30 ml PO Q4H PRN PRN Reason: indigestion Aspirin (Aspirin) 325 mg PO BID [facility] Last Admin: 09/27/17 08:38 Dose: 325 mg Bisacodyl (Dulcolax) 10 mg RECTAL DAILY PRN PRN Reason: Constipation Celecoxib (Celebrex) 200 mg PO BID [facility] Last Admin: 09/27/17 08:38 Dose: 200 mg Diphenhydramine HCl (Benadryl) 25 - 50 mg PO Q6H PRN PRN Reason: Itching Docusate Sodium (Colace) 100 mg PO BID [facility] Last Admin: 09/27/17 08:38 Dose: 100 mg Famotidine (Pepcid) 40 mg IVPUSH ONARRIVE [facility] Last Admin: 09/25/17 09:26 Dose: 40 mg Acetaminophen 1,000 mg/ Premix 100 mls @ 400 mls/hr IV ONARRIVE [facility] Last Admin: 09/25/17 09:25 Dose: 400 mls/hr Cefazolin Sodium/Dextrose 2 gm (/ Premix) 50 mls @ 100 mls/hr IV ONCALL [facility] Ropivacaine 49.25 ml/Ketorolac Tromethamine 30 mg/Epinephrine HCl 0.5 mg/ Clonidine HCl 80 mcg/ Sodium Chloride 100 mls @ 50 mls/min INJECT ASDIRECTED [facility] Tranexamic Acid 4,000 mg/ (Sodium Chloride) 140 mls @ 600 mls/hr IV ASDIRECTED [facility] Ketorolac Tromethamine (Toradol) 30 mg IVPUSH ONARRIVE [facility] Last Admin: 09/25/17 09:26 Dose: 30 mg Levothyroxine Sodium (Synthroid) 88 mcg PO ACBREAKFAST [facility] Last Admin: 09/27/17 06:55 Dose: 88 mcg Morphine Sulfate (Morphine) 1 - 3 mg IVPUSH Q3H PRN PRN Reason: Pain Last Admin: 09/26/17 13:16 Dose: 1 mg Ondansetron HCl (Zofran) 4 mg IV Q6HR PRN PRN Reason: NAUSEA/VOMITING Oxycodone HCl (Oxycontin) 10 mg PO ONARRIVE [facility] Last Admin: 09/25/17 09:25 Dose: 10 mg Oxycodone HCl (Oxycontin) 10 mg PO Q12HR [facility] Last Admin: 09/27/17 08:39 Dose: 10 mg Pantoprazole Sodium (Protonix) 40 mg PO DAILY [facility] Last Admin: 09/27/17 08:38 Dose: 40 mg Scopolamine (Transderm-Scop) 1.5 mg TRDERM ONARRIVE [facility] Last Admin: 09/25/17 09:27 Dose: 1.5 mg Sodium Chloride (Saline Flush) 10 ml FLUSH ASDIRECTED PRN PRN Reason: Keep Vein Open Sodium Chloride (Saline Flush) 2.5 ml FLUSH ASDIRECTED PRN PRN Reason: Keep Vein Open Tramadol HCl (Ultram) 50 - 100 mg PO Q6H PRN PRN Reason: Pain Venlafaxine HCl (Effexor Xr) 75 mg PO DAILY [facility] Last Admin: 09/27/17 08:38 Dose: 75 mg Discontinued Medications Cefazolin Sodium (Ancef) Confirm Administered Dose 2 gm .ROUTE .STK-MED ONE Stop: 09/25/17 07:12 Fentanyl (Sublimaze) Confirm Administered Dose 100 mcg .ROUTE .STK-MED ONE Stop: 09/25/17 07:09 Fentanyl (Sublimaze) 50 mcg IVPUSH Q5M PRN PRN Reason: Pain (severe 7-10) Stop: 09/26/17 09:05 Glycopyrrolate (Robinul) Confirm Administered Dose 0.2 mg .ROUTE .STK-MED ONE Stop: 09/25/17 10:57 Lactated Ringer's (Ringers, Lactated) 1,000 mls @ 100 mls/hr IV ASDIRECTED [facility] Last Admin: 09/25/17 23:22 Dose: 100 mls/hr Sodium Chloride (Normal Saline) Confirm Administered Dose 20 mls @ as directed .ROUTE .STK-MED ONE Stop: 09/25/17 07:12 Cefazolin Sodium/Dextrose 2 gm (/ Premix) 50 mls @ 100 mls/hr IV Q8H [facility] Stop: 09/26/17 03:29 Last Admin: 09/26/17 03:15 Dose: 100 mls/hr Ketorolac Tromethamine (Toradol) 30 mg IVPUSH Q6H [facility] Stop: 09/26/17 04:00 Last Admin: 09/25/17 23:27 Dose: 30 mg Lidocaine (Xylocaine-Mpf 2%) Confirm Administered Dose 5 ml .ROUTE .STK-MED ONE Stop: 09/25/17 07:08 Midazolam HCl (Versed 1 Mg/Ml) Confirm Administered Dose 2 mg .ROUTE .STK-MED ONE Stop: 09/25/17 07:09 Morphine Sulfate (Morphine Front Load [employer] 30 Mg In 30 Ml) 30 mg IV ASDIRECTED [facility] PRN Reason: Protocol Last Admin: 09/26/17 00:25 Dose: 30 mg Propofol (Diprivan 20 Ml) Confirm Administered Dose 400 mg .ROUTE .STK-MED ONE Stop: 09/25/17 07:09 Propofol (Diprivan 20 Ml) Confirm Administered Dose 200 mg .ROUTE .STK-MED ONE Stop: 09/25/17 11:00 Propofol (Diprivan 20 Ml) Confirm Administered Dose 200 mg .ROUTE .STK-MED ONE Stop: 09/25/17 11:02 Propofol (Diprivan 20 Ml) Confirm Administered Dose 200 mg .ROUTE .STK-MED ONE Stop: 09/25/17 11:10 Propofol (Diprivan 20 Ml) Confirm Administered Dose 200 mg .ROUTE .STK-MED ONE Stop: 09/25/17 11:53 Tranexamic Acid (Cyklokapron) Confirm Administered Dose 4,000 mg .ROUTE .STK- MED ONE Stop: 09/25/17 07:27 - My Orders Last 24 Hours: Active Orders 24 hr Category Date Time Status Ready for Discharge [RC] PER UNIT ROUTINE Care 09/27/17 08:44 Active HEMOGLOBIN/HEMATOCRIT,HH [HEME] DAILY Lab 09/28/17 06:00 Ordered traMADol [Ultram] Med 09/26/17 16:44 Active 50 - 100 mg PO Q6H PRN Medication Orders Hydrocodone Bitart/Acetaminophen ([place] 325-10 Mg) 1 - 2 tab PO Q4H PRN PRN Reason: Pain Last Admin: 09/27/17 06:51 Dose: 2 tab Admin: 09/27/17 02:07 Dose: 2 tab Admin: 09/26/17 19:48 Dose: 2 tab Admin: 09/26/17 15:35 Dose: 2 tab Admin: 09/26/17 11:35 Dose: 2 tab Admin: 09/26/17 07:34 Dose: 2 tab Admin: 09/26/17 03:12 Dose: 1 tab Admin: 09/25/17 22:13 Dose: 1 tab Al Hydroxide/Mg Hydroxide (Mag-Al Plus) 30 ml PO Q4H PRN PRN Reason: indigestion Aspirin (Aspirin) 325 mg PO BID [facility] Last Admin: 09/27/17 08:38 Dose: 325 mg Admin: 09/26/17 21:33 Dose: 325 mg Admin: 09/26/17 08:53 Dose: 325 mg Bisacodyl (Dulcolax) 10 mg RECTAL DAILY PRN PRN Reason: Constipation Celecoxib (Celebrex) 200 mg PO BID [facility] Last Admin: 09/27/17 08:38 Dose: 200 mg Admin: 09/26/17 21:32 Dose: 200 mg Admin: 09/26/17 08:56 Dose: 200 mg Diphenhydramine HCl (Benadryl) 25 - 50 mg PO Q6H PRN PRN Reason: Itching Docusate Sodium (Colace) 100 mg PO BID [facility] Last Admin: 09/27/17 08:38 Dose: 100 mg Admin: 09/26/17 21:33 Dose: 100 mg Admin: 01/30/18 08:54 Dose: 100 mg Admin: 09/25/17 20:17 Dose: 100 mg Famotidine (Pepcid) 40 mg IVPUSH ONARRIVE [facility] Last Admin: 09/25/17 09:26 Dose: 40 mg Acetaminophen 1,000 mg/ Premix 100 mls @ 400 mls/hr IV ONARRIVE [facility] Last Admin: 09/25/17 09:25 Dose: 400 mls/hr Cefazolin Sodium/Dextrose 2 gm (/ Premix) 50 mls @ 100 mls/hr IV ONCALL [facility] Ropivacaine 49.25 ml/Ketorolac Tromethamine 30 mg/Epinephrine HCl 0.5 mg/ Clonidine HCl 80 mcg/ Sodium Chloride 100 mls @ 50 mls/min INJECT ASDIRECTED [facility] Tranexamic Acid 4,000 mg/ (Sodium Chloride) 140 mls @ 600 mls/hr IV ASDIRECTED [facility] Ketorolac Tromethamine (Toradol) 30 mg IVPUSH ONARRIVE [facility] Last Admin: 09/25/17 09:26 Dose: 30 mg Levothyroxine Sodium (Synthroid) 88 mcg PO ACBREAKFAST [facility] Last Admin: 09/27/17 06:55 Dose: 88 mcg Admin: 09/26/17 08:56 Dose: 88 mcg Morphine Sulfate (Morphine) 1 - 3 mg IVPUSH Q3H PRN PRN Reason: Pain Last Admin: 09/26/17 13:16 Dose: 1 mg Ondansetron HCl (Zofran) 4 mg IV Q6HR PRN PRN Reason: NAUSEA/VOMITING Oxycodone HCl (Oxycontin) 10 mg PO ONARRIVE [facility] Last Admin: 09/25/17 09:25 Dose: 10 mg Oxycodone HCl (Oxycontin) 10 mg PO Q12HR [facility] Last Admin: 09/27/17 08:39 Dose: 10 mg Admin: 09/26/17 21:33 Dose: 10 mg Admin: 09/26/17 08:54 Dose: 10 mg Admin: 09/25/17 20:17 Dose: 10 mg Pantoprazole Sodium (Protonix) 40 mg PO DAILY [facility] Last Admin: 09/27/17 08:38 Dose: 40 mg Admin: 09/26/17 08:53 Dose: 40 mg Scopolamine (Transderm-Scop) 1.5 mg TRDERM ONARRIVE [facility] Last Admin: 09/25/17 09:27 Dose: 1.5 mg Sodium Chloride (Saline Flush) 10 ml FLUSH ASDIRECTED PRN PRN Reason: Keep Vein Open Sodium Chloride (Saline Flush) 2.5 ml FLUSH ASDIRECTED PRN PRN Reason: Keep Vein Open Tramadol HCl (Ultram) 50 - 100 mg PO Q6H PRN PRN Reason: Pain Venlafaxine HCl (Effexor Xr) 75 mg PO DAILY [facility] Last Admin: 09/27/17 08:38 Dose: 75 mg Admin: 09/26/17 08:53 Dose: 75 mg - Plan Plan (Free Text/Narrative):: 1000 patient seen and examined. agree with above note. Patient states pain better controlled today. Awaiting PT. Dressing dry/intact. NVI. Hgb stable. Plan to discharge home today after PT. Patient agrees with plan. carly
[2017-09-27 12:08] VITALS: BP 122/68
--- NOTE | 2017-09-28 13:16 | DISCH ---
DATE OF DISCHARGE: 09/27/2017 PRIMARY CARE PHYSICIAN: Brock Osuna M.D. ADMITTING DIAGNOSIS: Degenerative joint disease, left knee, tricompartmental. OTHER MEDICAL DIAGNOSES: 1. Gastroesophageal reflux disease. 2. Hypothyroidism. 3. Anxiety 4. Attention deficit hyperactivity disorder. DISCHARGE DIAGNOSES: 1. Degenerative joint disease, left knee, tricompartmental. 2. Gastroesophageal reflux disease. 3. Hypothyroidism. 4. Anxiety 5. Attention deficit hyperactivity disorder. 6. Acute posthemorrhagic anemia. BRIEF HISTORY: Mahsa is a 61-year-old female, who has had progressive complaint of left knee pain. She has tried and failed conservative treatment. At that time, surgical treatment was recommended. On September 25, 2017, the patient underwent a left total knee arthroplasty using patient-specific instrumentation done by Dr. Princess Prather. This was under spinal anesthesia with sedation. Estimated blood loss was 100 mL. Tourniquet time was 21 minutes. There were no known complications. Upon completion of the procedure, the patient was sent to the PACU and subsequently to [facility] for postoperative care. HOSPITAL COURSE: Postoperatively, the patient did well. She received two doses of antibiotics postoperatively for a total of 24 hours of antibiotic coverage. Her pain is controlled with a combination of oral and IV pain medication. Physical therapy followed her through her hospital stay. Aspirin 325 mg by mouth twice daily was started on postoperative day #1 as DVT prophylaxis. Her vital signs have been stable. She has been afebrile. Her hemoglobin on the morning of September 27 was 10.8. She is ambulating well. Her pain is controlled with oral pain medications. She is comfortable with discharge to home. DISCHARGE MEDICATIONS: 1. OxyContin 10 mg. 2. [place] 10/325. 3. Celebrex 200 mg. 4. Colace 100 mg. 5. Aspirin 325 mg. DISCHARGE INSTRUCTIONS: 1. Follow up in clinic 10-14 days from the date of procedure. This appointment has been made for the patient. 2. Outpatient physical therapy 2-3 times per week for 4-6 weeks. 3. No driving while taking narcotic pain medication. 4. Use a wheeled walker for ambulation assistance. 5. She is to change her dressing on Thursday, August 31, 2017. She should place a new Aquacel dressing and leave that in place until followup. 6. Polar Care to the left knee as needed. 7. LESTER hose, on in the morning, off in the evening. Should she have questions or concerns prior to followup, she has been advised to return to clinic or call. For complete medication reconciliation and discharge instructions, please refer back to the patient's EHR. LISA WHITE /[id number] [email or web address]
== END 2017-09-27 13:54 | disposition home or self-care (01) | DRG 302 ==
LOC: MW.MS 08:57
PROVIDERS: ADMIT Orthopaedic Surgery; ATTEND Orthopaedic Surgery
PROC: 0SRD0J9 Replacement of Left Knee Joint with Synthetic Substitute, Cemented, Open Approach (ICD-10-PCS; principal; 2017-09-25)
DX: M17.12 Unilateral primary osteoarthritis, left knee (principal); M94.262 Chondromalacia, left knee
CPT/HCPCS: 01402; 36415; 73560-26-LT; 73560-LT; 85014; 85018; 86850; 86900; 86901; 88305; 88311; 97110-GP; 97116-GP; 97161-GP; A9270-GY; C1713; C1776; J0171; J0690; J0735; J1885; J2250; J2270; J2274; J2704; J2795; J3010; J7050; J7120